=== PATIENT | female | born 1940 | race Caucasian/White ===

== ENCOUNTER 2017-12-22 06:57 | Emergency (ER) | payer MEDICARE, BC ==
[2017-12-22] MEDS ORDERED: Oxymetazoline HCl 0.05% ( 15 ML ) ONE (07:19)
[2017-12-22] MEDS ORDERED: cloNIDine 0.1 MG TAB ONE (07:19)
[2017-12-22 07:30] LABS: Hemoglobin 15.2 g/dL (12.0-16.0)
== END 2017-12-22 09:58 | disposition home or self-care (01) ==
LOC: ERS 06:57
DX: R04.0 Epistaxis (principal); I10 Essential (primary) hypertension; E11.9 Type 2 diabetes mellitus without complications; E78.5 Hyperlipidemia, unspecified; Z79.82 Long term (current) use of aspirin; Z79.84 Long term (current) use of oral hypoglycemic drugs; Z79.899 Other long term (current) drug therapy
CPT/HCPCS: 36415; 85014; 85018; 99283

== ENCOUNTER 2018-08-14 08:49 | Outpatient (CLI) | payer MEDICARE, BC | END 2018-08-14 08:50 | disposition home or self-care (01) | LOC: BICMAMMO 08:49 | PROVIDERS: ATTEND Family Medicine | DX: Z12.31 Encounter for screening mammogram for malignant neoplasm of breast (principal); Z80.3 Family history of malignant neoplasm of breast | CPT/HCPCS: 77063; 77067 ==

== ENCOUNTER 2019-02-09 09:14 | Outpatient (CLI) | payer MEDICARE, BC ==
--- NOTE | 2019-02-09 11:27 | BD ---
DEXA BONE MINERAL DENSITY STUDY: HISTORY: Postmenopausal. COMPARISON: None. FINDINGS: LUMBAR SPINE BMD (g/cm2) T-SCORE Z-SCORE L1 1.601 5.6 7.8 L2 1.624 5.4 7.9 L3 1.711 5.7 8.3 L4 1.994 8.5 11.2 TOTAL 1.733 6.2 8.8 WHO CLASSIFICATION: Normal. WRIST BMD (g/cm2) T-SCORE Z-SCORE ULTRA-DISTAL 0.557 2.0 4.0 MID 0.622 0.3 3.0 ONE-THIRD 0.709 0.3 3.0 WHO CLASSIFICATION: Normal. IMPRESSION: Normal bone mineral density. POS: CET
== END 2019-02-09 09:15 | disposition home or self-care (01) ==
LOC: BICMAMMO 09:14
PROVIDERS: ATTEND Family Medicine
DX: Z78.0 Asymptomatic menopausal state (principal)
CPT/HCPCS: 77080

== ENCOUNTER 2019-06-03 15:27 | Outpatient (CLI) | payer MEDICARE, BC ==
--- NOTE | 2019-06-03 16:37 | MRI ---
MRI OF THE LUMBAR SPINE WITHOUT CONTRAST: 06/03/19 INDICATION: History of right hamstring pain since December with lumbar radiculopathy. COMPARISON: Prior MR of the lumbar spine dated 05/30/09. FINDINGS: Grade II anterolisthesis of L4 and L5 is stable appearing. Mild retrolisthesis of L1 and L2 is stable . Conus is seen to terminate at approximately T12-L1. 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 At the L5-S1 level, there is a far right lateral disc protrusion measuring 7 mm encroaching on the ex iting right L5 nerve root without definite impingement. This is best seen on image 53 of series 6 and image 3 of series 3. At L4-5, there is worsening severe central canal narrowing due to facet degenerative change as well a s a broad based pseudobulge. There is moderate to severe right and severe left neural foraminal narro wing which is stable. At L3-4, there is a broad based bulge with facet joint degenerative change inducing mild central alis l narrowing with moderate bilateral neural foraminal narrowing which has progressed from the prior ex am. At L2-3, there is facet joint degenerative change with a broad based disc bulge inducing mild to mode rate central canal narrowing with moderate right and mild left neural foraminal narrowing. The previo usly seen synovial cyst projecting off the left L2-3 facet complex appears slightly more prominent an d is best seen on image 18 of series 3 and image 30 of series 6 measuring approximately 7.5 mm. This does encroach upon the neural foramina and likely impinges along the superior aspect of the exiting l eft L2 nerve root. At L1-2, there are broad based bulge and facet joint degenerative changes inducing mild central canal narrowing with moderate bilateral neural foraminal narrowing which is stable. At T12-L1, the broad based bulge and facet joint degenerative change induce mild central canal narrow ing and mild bilateral neural foraminal narrowing. IMPRESSION: 1. Worsening central canal narrowing at L4-5 with severe central canal narrowing now being prese nt. There is stable severe left and moderate to severe right neural foraminal narrowing at L4-5. 2. Mild central canal narrowing at L3-4 with moderate bilateral neural foraminal narrowing. 3. Moderate central canal narrowing at L2-3 with severe left neural foraminal narrowing due to a synovial cyst projecting off of the left L2-3 nerve root. 4. Mild central canal narrowing at L1-2 with moderate bilateral neural foraminal narrowing. 5. Mild central canal narrowing at T12-L1 with mild bilateral neural foraminal narrowing. 6. New far lateral right sided protrusion at L5-S1 encroaches upon the exiting right L5 nerve ro ot without definite impingement. POS: TPC
== END 2019-06-03 15:28 | disposition home or self-care (01) ==
LOC: TBSIIMAG 15:27
PROVIDERS: ATTEND Neurological Surgery
DX: M54.16 Radiculopathy, lumbar region (principal); M48.07 Spinal stenosis, lumbosacral region; M48.05 Spinal stenosis, thoracolumbar region
CPT/HCPCS: 72148

== ENCOUNTER 2019-09-09 09:15 | Outpatient (CLI) | payer MEDICARE, BC ==
--- NOTE | 2019-09-09 11:57 | MMO ---
Bilateral MAMMO Bilat Screen [facility]O. CLINICAL HISTORY: Patient is 78 years old and is seen for screening. The patient has the following family history of breast cancer: maternal aunt, malignant (generic). The patient has no personal history of cancer. The patient has a history of left Excisional Biopsy in April, - benign. VIEWS: The views performed were: bilateral craniocaudal with tomosynthesis; bilateral mediolateral oblique with tomosynthesis; and bilateral exaggerated craniocaudal. FILMS COMPARED: The present examination has been compared to prior imaging studies performed at [facility] on 08/07/2015, 08/08/2016, 08/13/2017 and 08/14/2018. This study has been interpreted with the assistance of computer-aided detection. MAMMOGRAM FINDINGS: The breasts are almost entirely fat. There are no suspicious masses, suspicious calcifications, or new areas of architectural distortion. IMPRESSION: THERE IS NO MAMMOGRAPHIC EVIDENCE OF MALIGNANCY. A ROUTINE FOLLOW-UP MAMMOGRAM IN 1 YEAR IS RECOMMENDED. THE RESULTS OF THIS EXAM WERE SENT TO THE PATIENT. ACR BI-RADS Category 1 - Negative MAMMOGRAPHY NOTE: 1. A negative mammogram report should not delay a biopsy if a dominant of clinically suspicious mass is present. 2. Approximately 10% to 15% of breast cancers are not detected by mammography. 3. Adenosis and dense breasts may obscure an underlying neoplasm. Reported by: DANNI HENDRICKSON MD Electonically Signed: [id number]
== END 2019-09-09 09:16 | disposition home or self-care (01) ==
LOC: BICMAMMO 09:15
PROVIDERS: ATTEND Family Medicine
DX: Z12.31 Encounter for screening mammogram for malignant neoplasm of breast (principal); Z80.3 Family history of malignant neoplasm of breast
CPT/HCPCS: 77063; 77067

== ENCOUNTER 2021-06-20 10:22 | Outpatient (CLI) | payer MEDICARE, BC | END 2021-06-20 10:23 | disposition home or self-care (01) | LOC: TBSIIMAG 10:22 | PROVIDERS: ATTEND Neurological Surgery | DX: M43.16 Spondylolisthesis, lumbar region (principal); M47.816 Spondylosis without myelopathy or radiculopathy, lumbar region | CPT/HCPCS: 72120; 72148 ==